=== PATIENT | female | born 1990 | race Caucasian/White ===

== ENCOUNTER 2019-05-26 09:20 | Outpatient (CLI) | payer BC, MEDICAID, SELFPAY ==
[2019-05-26] VITALS (11 sets, daily range): BP systolic 0–122; BP diastolic 0–73; PULSE 84–105; RESP 18; TEMP 36.4–36.7; O2SAT 99–100; BMI 32.3
[2019-05-26] MEDS: terbutaline 1 mg/mL INJ 0.25 MG SUBCUT (10:25)
[2019-05-26 10:51] LABS: Add Urine Microscopic? YES; Bilirubin Urine Neg (NEGATIVE); Blood Urine Neg (Negative); Glucose Urine UA Norm (Normal); Ketones Urine Negative (Negative); Leukocyte Esterase Urine Negative (Negative); Nitrate Urine Negative (Negative); Protein Urine Neg (Negative); Urine Appearance Hazy (CLEAR); Urine Color Yellow (Yellow); Urobilinogen Urine Norm (Negative); pH Urine 9 (5-7)
[2019-05-26 10:56] LABS: Bacteria Urine TRACE; Fine Granular Casts Urine 0-4 /lpf; Squamous Epithelial Cell Urine 25-40 (0-5); Sulfosalicylic Acid Urine Negative; WBC Urine RARE /hpf (0-5)
[2019-05-26 10:57] LABS: Add Urine Culture? No
== END 2019-05-26 11:15 | disposition home or self-care (01) ==
LOC: OPOB 09:26 → OBGYN 11:10 → OPOB 05-28 07:35
PROVIDERS: Family Provider Family Medicine; PCP Family Medicine; Visit Provider Family Medicine
DX: O26.899 Other specified pregnancy related conditions, unspecified trimester (principal); Z3A.00 Weeks of gestation of pregnancy not specified; R10.9 Unspecified abdominal pain
CPT/HCPCS: 59025; 81001; 96372; 99211; A9270; J3105

== ENCOUNTER 2019-06-28 10:20 | Outpatient (CLI) | payer BC, MEDICAID, SELFPAY ==
[2019-06-28 10:50] VITALS: BP 118/87; PULSE 87; TEMP 36.5
[2019-06-28 10:58] VITALS: BMI 33.2
[2019-06-28 11:10] VITALS: BP 0/0
[2019-06-28 11:11] VITALS: BP 122/76; PULSE 75
[2019-06-28 11:31] VITALS: BP 116/81; PULSE 79
[2019-06-28 11:51] VITALS: BP 120/81; PULSE 79
[2019-06-28 11:54] VITALS: BP 117/82; PULSE 79
== END 2019-06-28 12:00 | disposition home or self-care (01) ==
LOC: OPOB 10:28 → OBGYN 11:55 → OPOB 06-29 14:34
PROVIDERS: Family Provider Family Medicine; PCP Family Medicine; Visit Provider Family Medicine
DX: O26.899 Other specified pregnancy related conditions, unspecified trimester (principal); Z3A.00 Weeks of gestation of pregnancy not specified; R10.9 Unspecified abdominal pain
CPT/HCPCS: 59025; 99211

== ENCOUNTER 2019-07-06 22:00 | Outpatient (CLI) | payer BC, MEDICAID, SELFPAY ==
[2019-07-06 22:02] VITALS: BMI 33.4
[2019-07-06 22:18] VITALS: BP 129/83; PULSE 87
[2019-07-06 22:57] VITALS: BP 124/80; PULSE 86; RESP 16; TEMP 36.7
--- NOTE | 2019-07-06 23:24 | PC.NURSE ---
Pain only with contractions
== END 2019-07-06 22:57 | disposition home or self-care (01) ==
LOC: OPOB 22:01 → OBGYN 22:04
PROVIDERS: Family Provider Family Medicine; PCP Family Medicine; Visit Provider Family Medicine
DX: O26.899 Other specified pregnancy related conditions, unspecified trimester (principal); Z3A.00 Weeks of gestation of pregnancy not specified; R10.9 Unspecified abdominal pain
CPT/HCPCS: 99211

== ENCOUNTER 2019-07-08 03:10 | Inpatient (IN) | payer BC, MEDICAID, SELFPAY ==
[2019-07-08] VITALS (55 sets, daily range): BP systolic 0–147; BP diastolic 0–80; PULSE 71–100; RESP 15–18; TEMP 36.5–36.9; O2SAT 86–98; BMI 33.3
[2019-07-08] MEDS: lactated ringers 1,000 ML 999 ML IV (03:35)
--- NOTE | 2019-07-08 03:46 | PM.OBGYHP ---
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 She presents at 40-2/7 weeks gestation with complaint of contractions initially irregular and mild but then becoming more frequent and intense at approximately midnight on 07/08/2019. She states that she has had no leakage of fluid and no bleeding. She was scheduled for induction this morning at 7:30 AM secondary to postdates. Her course has been complicated only by anemia of as well as some heartburn for which she takes iron and famotidine respectively. Present Details : 4 Para: 2 Date of Last Menstrual Period: 09/29/18 Calculated Date of Delivery: 07/06/19 Gestational Age Based on Last Menstrual Period: 40 Dating criteria OB: LMP confirmed by 2nd trimester US care: good care Ultrasounds: normal mid trimester US Obstetrical complications: other (Anemia of ) Medical complications OB: gastrointestinal (Gastroesophageal reflux) Labs Blood type OB HPI: O (+) positive Rubella: Immune RPR: Negative GBS: Negative HBsAG: Negative Other Lab Information: Antibody Screen: Negative HCT/HB.2/42.8 initially, most recent hemoglobin in clinic 12.0 Pap Test: Normal Urine Culture/Screen: Negative HIV Counseling/Testing: Negative Hepatitis C: Negative Chlamydia: Negative GC: Negative Varicella Titer: Immune MSAFP/Multiple Markers: Negative Diabetes Screen: 100 Tdap: Done 04/19/2019 Urine Drug Screen: Negative Review of Systems Const: Denies: fever : Reports: pelvic pain (Intermittent and consistent with contractions); Denies: vaginal bleeding or vaginal discharge Medications/Allergies Home Medications Medication Instructions Recorded Confirmed Last Taken Type ferrous sulfate [Iron (ferrous 325 mg PO DAILY 07/08/19 07/08/19 07/02/19 08:00 History sulfate)] Allergies Allergy/AdvReac Type Severity Reaction Status Date / Time No Known Allergies Allergy Verified 07/08/19 04:52 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: Medical History (Updated 07/08/19 @ 04:13 by Blanche Yusuf MD) Renal calculus Request for sterilization Surgical History No history of previous surgery Family History Father Hypertension Social History (Updated 07/08/19 @ 04:01 by Blanche Yusuf MD) Smoking and tobacco status: never smoked Second hand smoke exposure: Yes Alcohol intake: never Substance/Drug Use: never Adopted: No Caregiver/support person: Yes Lives independently: Yes Household members: significant other and children Marital status: Single Number of children: 2 Number of grandchildren: 0 Highest education level completed: High School Graduate Current occupational status: employed Current occupation: [employer] at [employer] History of recent travel: No Sexually active: Yes Other Female Reproductive History: Hx Age of Menarche: 12 Duration of menses: 3-5 days Cycle Length: irregular Menstrual flow: normal/abnormal: normal Sexual History: Are you sexually active?: Yes How many partners have you had?: 6 What is your sexual preference?: Heterosexual Hx Sexually Transmitted Diseases: Yes Which STD?: Chlamydia (in 2008) Have you ever tested positive for HIV?: No Contraception: control method: Implanted History History History 4 Term 2 Miscarriages/Ectopic 1 0 Living Children 2 Past Pregnancies Del. Date GA/Weeks Outcome Route Wt Inf Gender Labor Lgth Comp. Anesthesia Location 09/18/08 38 live - full term Vaginal 6 lb 15.5 oz Male [facility] 08/07/15 8 spontaneous 08/03/16 39 live - full term Vaginal 6 lb 9.5 oz Female [facility] Delivery Date: 09/18/08 On 07/08/19 @ 04:04 Blanche Yusuf Renal calculus during Delivery Date: 08/07/15 No notes to display Delivery Date: 08/03/16 No notes to display Vitals/I&O/Wt Last Vital Signs Pulse 73 07/08/19 03:08 BP 0/0 07/08/19 03:43 Weight last 48 hrs Weight 176lb 0.217oz Physical Exam Narrative: EXAM NARRATIVE: For complete physical examination please refer to her record. heart tones have a baseline in the 130s to 140 with moderate variability, accelerations and no decelerations. Const: COMMON NORMALS: oriented x3, healthy appearing, alert and well nourished GENERAL APPEARANCE: in distress (Grimacing with contractions) : MANUAL OB EXAM: dilated (4 to 5 cm), effaced (Greater than 75%), station (-3) and other (Vertex, ballotable) AMNIOTIC FLUID: no fluid Psych: COMMON NORMALS: mental status grossly normal, thought process normal, cooperative, affect normal, speech normal and activity/motor behavior normal Data : 07/08/19 03:30 A&P Assessment and plan (1) 40 weeks gestation of : Status: Acute (2) Spontaneous onset of labor: Patient is requesting an epidural and at this moment is being prepared for it with labs and an IV fluid bolus. Patient had requested sterilization and has signed her consent on 04/19/2019 and completed her office consultation with women's health care but knows that elective surgeries are being postponed right now secondary to the Covid-19 pandemic. Status: Acute (3) Anemia affecting : Status: Acute Attestations Medical Necessity Statement*: As patient is actively laboring and has not yet delivered, she will need to remain hospitalized. Time Spent in Patient Care: Greater than 35 minutes Coding Level of Care Code Acute Property Insurance Inspector for Chg Fwd Exam Expanded Problem Focused Diagnoses 40 weeks gestation of Z3A.40 Spontaneous onset of labor Anemia affecting O99.019
[2019-07-08 03:53] LABS: Basophils # 0.1 10^3/uL (0.0-0.1); Basophils % 0.5 %; Eosinophils # 0.3 10^3/uL (0.0-0.8); Eosinophils % 2.2 %; Hemoglobin 13.4 g/dL (11.5-15.3); Lymphocytes # 2.7 10^3/uL (0.8-4.8); Lymphocytes % 17.5 %; Mean Corpuscular HGB Conc 31.2 g/dL (30.0-36.0); Mean Corpuscular Hemoglobin 26.3 pg (28.0-34.0); Mean Corpuscular Volume 84.3 fL (81-99); Mean Platelet Volume 10.4 fL (7.4-10.4); Monocytes # 1.4 10^3/uL (0.2-0.9); Monocytes % 9.3 %; Neutrophils # 10.8 10^3/uL (1.8-7.7); Nucleated Red Blood Cells % 0 %; Platelet Count 307 10^3/cmm (130-400); Red Cell Distribution Width 15.2 % (12.1-15.1); White Blood Count 15.5 10^3/uL (4.0-10.0)
[2019-07-08] MEDS: dextrose 5%-lactated ringers 1,000 ML 125 ML IV (04:36)
--- NOTE | 2019-07-08 05:16 | P.ANESASSM_ITS ---
Pre-Anesthetic Assessment Pre-Anesthetic Assessment: Height/Weight: Height 1.55 m Weight 79.838 kg Temp Pulse Resp BP Pulse Ox 98.4 F 74 18 123/58 97 07/08/19 03:00 07/08/19 05:11 07/08/19 03:00 07/08/19 05:11 07/08/19 05:12 Preop Diagnosis: IUP Proposed Procedure: labor epidural Was Beta Cynthia taken within 24 hours: N/A Meds/Allergies Current Medications: Current Medications Generic Name Dose Route Start Last Admin Trade Name Freq PRN Reason Stop Dose Admin Lactated Ringer's 1,000 mls @ 999 m ls/hr 07/08/19 03:11 07/08/19 04:36 Lactated Ringers IV Infused .Q1H1M PRN Infusion ANESTHESIA Dextrose/Lactated Ringer's 1,000 mls @ 125 m ls/hr 07/08/19 03:15 07/08/19 04:36 Dextrose 5%-Lact ated Ringers IV 125 mls/hr .Q8H MILTON Administration Ropivacaine 200 mg in 100 mls @ 6 mls/hr 07/08/19 03:15 07/08/19 05:08 Naropin Premix EPIDURAL 12 mls/hr .[id number] MILTON Administration PFSH Anesthesia PFSH: Medical History (Updated 07/08/19 @ 04:13 by Blanche Yusuf MD) Renal calculus Request for sterilization Surgical History No history of previous surgery Family History Father Hypertension Social History (Updated 07/08/19 @ 04:01 by Blanche Yusuf MD) Smoking and tobacco status: never smoked Second hand smoke exposure: Yes Alcohol intake: never Substance/Drug Use: never Adopted: No Caregiver/support person: Yes Lives independently: Yes Household members: significant other and children Marital status: Single Number of children: 2 Number of grandchildren: 0 Highest education level completed: High School Graduate Current occupational status: employed 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 [employer] History of recent travel: No Sexually active: Yes Female Reproductive History: Date of last menstrual period: 09/29/18 : 4 Data Anesthesia CBC & Chem 7: 07/08/19 03:30 Other Labs: Laboratory Results - last 48 hr 07/08/19 03:30 WBC 15.5 H RBC 5.10 Hgb 13.4 Hct 43.0 MCV 84.3 MCH 26.3 L MCHC 31.2 RDW 15.2 H Plt Count 307 MPV 10.4 Neut % (Auto) 70.0 Lymph % (Auto) 17.5 [place] % (Auto) 9.3 Eos % (Auto) 2.2 Baso % (Auto) 0.5 Neut # (Auto) 10.8 H Lymph # (Auto) 2.7 [place] # (Auto) 1.4 H Eos # (Auto) 0.3 Baso # (Auto) 0.1 Nucleated RBC % (auto) 0 Nucleated RBCs # 0.0 Cardiac Studies: No Data to Display Anesthesia Procedures Procedure Narrative: no changes to previous pre-op assessment Epidural: Time Out Performed: Yes Consents Signed: Procedure Consent Consent: requested by attending/covering physician, from patient, risks and benefits reviewed and patient agrees to proceed Lumbar Level: L3-L4 Epidural position: sitting Epidural procedure: sterile prep of area, 1% lidocaine to numb the area (3 cc), test dose given, 1.5% xylocaine 1:200k epi, 0.2% Ropivacaine bolus ml (8 cc), placed PCEA, no systemic response, sterile pao ssing applied, L.U.D. no apparent complications and 0.2% Ropiavacaine @ mls/hr (12 ml/hr 5 cc Q 10 min bolus x 3) Additional Comments: BABS @ 6 cm, catheter threaded to 14 cm at skin. no parasthesia VSS see OBYX . Patient states legs are heavy bilaterally, pain with contractions 0/10 @ this time.
--- NOTE | 2019-07-08 06:04 | P.PN_ITS ---
CRYPTOGRAPHIC CLERK Subjective Subjective: Interval history: Patient received her epidural and is comfortable. Labor: Pain Control: epidural Dilation (cm): 8 Effacement (%): 90 Station: -2 Amniotic Membrane Status: Ruptured Monitor Mode: External Contraction Pattern: Regular Status: Category ll Vitals/I&O/Wt Last Vital Signs Temp 98.0 F 07/08/19 05:32 Pulse 75 07/08/19 05:48 Resp 18 07/08/19 05:32 BP 114/61 07/08/19 05:48 Pulse Ox 97 07/08/19 05:12 07/07/19 07/07/19 07/08/19 14:59 22:59 06:59 Intake Total 1000 / 1000 Balance 1000 / 1000 Weight last 48 hrs Weight 176 lb 0.217 oz Physical Exam Narrative: EXAM NARRATIVE: FHTs with baseline 130-140, moderate variability, accelerations, also early decelerations with each contraction since amniotomy : MANUAL OB EXAM: dilated 8 cm, effaced (90), station -2 and other (vertex, not ballottable, bulging bag of water) AMNIOTIC FLUID: clear (post amniotomy, moderate amount) Urinary Catheter Management^: Irwin: Cath Placed During This Visit: yes Urinary Catheter Date of Insertion: 07/08/19 Urinary Catheter Time of Insertion: : Data : 07/08/19 03:30 A&P Assessment and plan (1) 40 weeks gestation of : Status: Acute (2) Spontaneous onset of labor: Patient is comfortable with her epidural in place. Status: Acute (3) Rupture of membranes with clear amniotic fluid: Amniotomy was performed at 0555 and was productive of a moderate amount of clear fluid. Status: Acute Attestations Medical Necessity Statement*: As patient has not yet delivered, she will co ntinue to require hospitalization. Coding Level of Care Code Acute Weatherization Crew Leader for Chg Fwd Diagnoses 40 weeks gestation of Z3A.40 Spontaneous onset of labor Rupture of membranes with clear amniotic fluid
--- NOTE | 2019-07-08 07:31 | P.PCNOB_ITS ---
Delivery Note: Date of delivery: July 08, 2019 Pre-Delivery Course: Patient arrived earlier this morning with contractions increasing in frequency and intensity since midnight. Upon arrival she was 4 to 5 cm dilated, 80% effaced and -3 station and gene every 4 to 5 minutes. She opted for an epidural, received it and became comfortable. She was then found to be 7 cm dilated. Amniotomy was performed at 5:55 AM and was productive of a moderate amount of clear fluid, and, at that time, she was 8 cm dilated, 90% effaced and -2 station. She began having early decelerations with nearly each contraction and was found to be completely dilated at 6:57 AM. At that time she was 0 station. Delivery: We began the active portion of the second stage of her labor at 7:07 AM, and in 3 minutes she delivered a viable female infant at 7:10 AM. Head was straight OA. Bulb suctioning was done upon delivery of the head. There was a nuchal cord x1 which was reduced easily manually on the perineum. Bulb suction ing was then done upon delivery of the baby's body. Baby was placed on maternal abdomen while cord was clamped by myself approximately 50 seconds after delivery. Cord was cut by the father the baby, and cord blood was obtained. Gentle traction was placed on the cord, and intravenous Pitocin was begun in routine dosages. The placenta delivered intact at 7:14 AM and appeared normal. Fundal massage revealed a firm uterus. Perineum and cervix were inspected, and there were bilateral periurethral abrasions as well as a first-degree midline perineal laceration which was repaired with 2-0 chromic in standard fashion with her epidural as anesthesia. Post-Delivery Status: Estimated blood loss was approximately 150 mL's. Mother and baby are stable. Baby had Apgars of 9 at 1 minute and 9 at 5 minutes and weighed 7 pounds 13 ounces. A&P Assessment and plan (1) 40 weeks gestation of : Status: Resolved (2) Spontaneous onset of labor: Status: Resolved (3) Anemia affecting : Status: Resolved (4) Rupture of membranes with clear amniotic fluid: Status: Resolved (5) (normal spontaneous vaginal delivery): Routine orders Status: Acute (6) Periurethral abrasion, delivered, current hospitalization: Status: Acute (7) Perineal laceration with delivery, first degree, delivered: Status post repair Status: Acute (8) Nuchal cord, delivered, current hospitalization: Status: Resolved Coding Level of Care Code Acute Human Resources Specialist for Chg Fwd Diagnoses 40 weeks gestation of Z3A.40 Spontaneous onset of labor Anemia affecting O99.019 Rupture of membranes with clear amniotic fluid (normal spontaneous vaginal delivery) O80 Periurethral abrasion, delivered, current hospitalization O71.82 Perineal laceration with delivery, first degree, delivered O70.0 Nuchal cord, delivered, current hospitalization O69.81X0
[2019-07-08] MEDS: oxytocin 30 UNIT/500 ML BAG 600 UNIT IV (08:23)
[2019-07-08] MEDS: prenatal vitamin Capsule 1 CAP PO (09:12)
[2019-07-08] MEDS: docusate sodium 100 mg Capsule PO ×2 (09:12→18:29)
[2019-07-08 19:59] LABS: Hematocrit 36.4 % (37.0-47.0); Hemoglobin 11.8 g/dL (11.5-15.3); Mean Corpuscular HGB Conc 32.4 g/dL (30.0-36.0); Mean Corpuscular Hemoglobin 26.9 pg (28.0-34.0); Mean Corpuscular Volume 82.9 fL (81-99); Mean Platelet Volume 9.9 fL (7.4-10.4); Platelet Count 324 10^3/cmm (130-400); Red Blood Count 4.39 10^6/uL (4.1-5.3); Red Cell Distribution Width 15.2 % (12.1-15.1); White Blood Count 18.7 10^3/uL (4.0-10.0)
[2019-07-09 01:45] VITALS: BP 127/77; PULSE 79; RESP 17; TEMP 36.8; O2SAT 95
[2019-07-09 04:40] VITALS: BP 127/86; PULSE 78; RESP 15; TEMP 36.6; O2SAT 97
--- NOTE | 2019-07-09 07:40 | PM.OBGYDC ---
Discharge Providers NURSE CARE MANAGER Date of Admission: 07/08/19 03:10 Date of Discharge: 07/09/19 Attending Provider at Admission: Blanche Yusuf MD Attending Provider at Discharge: Blanche Yusuf MD Primary Care Provider: Blanche Yusuf MD Diagnoses at Discharge Discharge Diagnosis (1) 40 weeks gestation of : Status: Resolved (2) Spontaneous onset of labor: Status: Resolved (3) Rupture of membranes with clear amniotic fluid: Status: Resolved (4) Anemia affecting : Status: Resolved (5) (normal spontaneous vaginal delivery): Status: Acute (6) Periurethral abrasion, delivered, current hospitalization: Status: Acute (7) Perineal laceration with delivery, first degree, delivered: Status: Acute (8) Nuchal cord, delivered, current hospitalization: Status: Resolved Reason for Visit Reason for Visit: Reason For Visit: poss labor Hospital Course Hospital Course: Patient arrived in the early hours of the morning on 07/08/2019 gene every 4 to 5 minutes. The contractions had begun at midnight and had increased in frequency and intensity. Upon arrival to the labor room she was 4 to 5 cm dilated, 80% effaced and -3 station. She opted for an epidural, received it and became comfortable. At that time she was 7 cm dilated. Amniotomy was performed when she was 8 cm dilated and 90% effaced and -2 station. Within the hour she was completely dilated and in less than 10 minutes delivered a viable female infant weighing 7 pounds 13 ounces with Apgars of 9 at 1 minute and 9 at 5 minutes. day 1 she has only cramping with breast-feeding and has had minimal bleeding. Discharge Summary: Patient states that she has vitamins at home to continue as long as she is breast-feeding but does need some ibuprofen sent to her pharmacy. She realizes that her sterilization procedure will be delayed and plans to resume a progesterone only pill at her 6-week visit. She has no concerns with baby now that she has voided. She is ready for discharge. Information Peripartum Data: Infant Delivery Method: Vaginal Physical Exam Const: COMMON NORMALS: no apparent distress, oriented x3, no limitations, healthy appearing, alert and well nourished Resp: COMMON NORMALS: normal respiratory effort and clear to auscultation bilaterally AUSCULTATION: clear to auscultation bilaterally Cardio: COMMON NORMALS: regular rate, regular rhythm, S1 normal heart sound, S2 normal heart sound, no murmurs and peripheral pulses 2+ throughout RATE: regular rate RHYTHM: regular rhythm HEART SOUNDS: S1 normal and S2 normal PERIPHERAL PULSES: pulses 2+ throughout : UTERUS PALPATION: Yes other OB (Fundus is firm, nontender and 2 to 3 fingerbreadths below the umbilicus) Extremity: COMMON NORMALS: no pedal edema Neuro: COMMON NORMALS: oriented x3 SENSORIUM/ORIENTATION: Yes alert Psych: COMMON NORMALS: mental status grossly normal, thought process normal, cooperative, affect normal, speech normal and activity/motor behavior normal SPEECH: Yes normal speech THOUGHT PROCESS: normal thought process Urinary Catheter Management^: Irwin: Cath Placed During This Visit: yes, but has since been removed by the nurse Reason for Continuing Indwelling Catheter: Decision to DC Catheter Urinary Catheter Date of Insertion: 07/08/19 Urinary Catheter Time of Insertion: 05:20 Date Urinary Catheter Removed: 07/08/19 Time Urinary Catheter Discontinued: 07:02 Discharge Data Data Completed and Pending: Labs from last 24 hours 07/08/19 19:43 WBC 18.7 H RBC 4.39 Hgb 11.8 Hct 36.4 L MCV 82.9 MCH 26.9 L MCHC 32.4 RDW 15.2 H Plt Count 324 MPV 9.9 Vitals: Last Vital Signs Temp 97.8 F 07/09/19 04:40 Pulse 78 07/09/19 04:40 Resp 15 07/09/19 04:40 BP 127/86 07/09/19 04:40 Pulse Ox 97 07/09/19 04:40 Discharge Plan Discharge Patient Disposition: Home, Self-Care Condition: Stable Prescriptions: New ibuprofen 800 mg Tablet 800 mg PO TID Qty: 30 RF: 0 Continued 28-800 mg-mcg Tablet 1 tab PO DAILY RF: 0 Discontinued famotidine 20 mg tablet 20 mg PO DAILY RF: 0 ferrous sulfate [Iron (ferrous sulfate)] 325 mg (65 mg iron) Tablet 325 mg PO DAILY RF: 0 Discharge Orders: Discharge Order (Routine); Ordered 07/09/19 Ordered By: Blanche Yusuf Referrals: Blanche Yusuf MD [Primary Care Provider] - 6 Weeks Discharge Diet: Usual diet Discharge Activity: Limit activity as instructed Patient Instructions: Vitamins (By mouth), Vaginal Delivery (DC), OB Discharge Report, OB Food/Drug Interaction Guide, OB Care at Home, OB Home Care, OB Proud Parent Packet, OB Vaginal Deliveries Discharge Attestations NURSE CARE MANAGER Time Spent in Discharge Care*: less than 30 min Specific Discharge Activities: Specific discharge activities: educating patient, documenting/other paperwork and evaluating patient/reviewing data Status at Discharge: Cognitive status at discharge: cognitively intact, Behavioral status at discharge: cooperative, Functional status at discharge: independent ambulation Overall status at discharge: patient is progressing back to baseline Coding Level of Care Code Acute Guardian Family Member for Chg Fwd Diagnoses 40 weeks gestation of Z3A.40 Spontaneous onset of labor Rupture of membranes with clear amniotic fluid Anemia affecting O99.019 (normal spontaneous vaginal delivery) O80 Periurethral abrasion, delivered, current hospitalization O71.82 Perineal laceration with delivery, first degree, delivered O70.0 Nuchal cord, delivered, current hospitalization O69.81X0
[2019-07-09] MEDS: prenatal vitamin Capsule 1 CAP PO (10:04)
[2019-07-09] MEDS: docusate sodium 100 mg Capsule PO (10:04)
[2019-07-09 10:30] VITALS: BP 116/75; PULSE 104; RESP 15; TEMP 36.7; O2SAT 96
[2019-07-09 10:45] VITALS: BP 116/75; PULSE 104; RESP 15; TEMP 36.7; O2SAT 96
== END 2019-07-09 10:45 | disposition home or self-care (01) | DRG 807 ==
LOC: OBGYN 03:42 → OPOB 03:42 → OBGYN 03:42 → OPOB 03:42
PROVIDERS: Admitting Provider Family Medicine; Family Provider Family Medicine; PCP Family Medicine; Visit Provider Family Medicine
DX: O99.02 Anemia complicating childbirth (principal); Z37.0 Single live birth; Z3A.40 40 weeks gestation of pregnancy; D64.9 Anemia, unspecified; O69.81X0 Labor and delivery complicated by cord around neck, without compression, not applicable or unspecified; O70.0 First degree perineal laceration during delivery; O71.82 Other specified trauma to perineum and vulva
CPT/HCPCS: 12345; 36415; 51702; 59409; 85025; 85027; 99211; J2795; J3010

== ENCOUNTER 2019-09-22 10:30 | Day surgery (SDC) | payer BC, MEDICAID, SELFPAY ==
[2019-09-20 10:51] VITALS: BMI 29.8
[2019-09-20 11:12] LABS: Add Urine Microscopic? NO
[2019-09-20 11:23] LABS: Urine Appearance Clear (CLEAR); Urine Color Yellow (Yellow)
[2019-09-20 11:24] LABS: Bilirubin Urine Neg (NEGATIVE); Blood Urine Neg (Negative); Glucose Urine UA Norm (Normal); Ketones Urine Negative (Negative); Leukocyte Esterase Urine Negative (Negative); Nitrate Urine Negative (Negative); Protein Urine Neg (Negative); Urobilinogen Urine 1 mg/dL (Negative); pH Urine 7 (5-7)
--- NOTE | 2019-09-20 11:31 | P.ANESASSM_ITS ---
Pre-Anesthetic Assessment Pre-Anesthetic Assessment: Height/Weight: Height 1.55 m Weight 71.668 kg Preop Diagnosis: Desire permanent sterilization Proposed Procedure: Operation Date: 09/22/19 11:35 Proposed Procedures p Geovanni Kowalski,Removal of Tubes Sterilization 08695 Z30.2(Bilateral) - Ankur Keith MD Social: Social History: No alcohol and No tobacco Exam: Pre-Anes Outpt Exam: alert, oriented x 3, clear to auscultation bilaterally and regular rate & rhythm Airway: Submandibular: WNL Cervical ROM: WNL MP: 2 Dentition: Other (poor dentation) History/ROS: No significant history except as noted Pulmonary: Pulmonary: None reported CV/HEM: CV/HEM: None reported : : None reported Hepatic: Hepatic: None reported GI: GI: None reported Metabolic: Metabolic: None reported Musc/skel: Musc/skel: None reported Neuropsych: Neuropsych: None reported Anesthetic Plan: ASA status: 1 Anesthesia: Anesthesia Evaluation and General Risk of > 500 ml blood loss (7ml/kg in children): No PFSH Anesthesia PFSH: Medical History Renal calculus Request for sterilization Surgical History No history of previous surgery Family History Father Hypertension Social History Smoking and tobacco status: never smoked Second hand smoke exposure: Yes Alcohol intake: never Substance/Drug Use: never Adopted: No Caregiver/support person: Yes Lives independently: Yes Household members: significant other and children Marital status: Single Number of children: 3 Number of grandchildren: 0 Highest education level completed: High School Graduate Current occupational status: employed 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
[2019-09-20 11:34] LABS: Basophils # 0.1 10^3/uL (0.0-0.1); Basophils % 0.6 %; Eosinophils # 0.5 10^3/uL (0.0-0.8); Eosinophils % 4.9 %; Hematocrit 42.4 % (37.0-47.0); Hemoglobin 13.4 g/dL (11.5-15.3); Lymphocytes # 2.2 10^3/uL (0.8-4.8); Lymphocytes % 20.3 %; Mean Corpuscular HGB Conc 31.6 g/dL (30.0-36.0); Mean Corpuscular Hemoglobin 27.8 pg (28.0-34.0); Mean Platelet Volume 9.4 fL (7.4-10.4); Monocytes # 0.8 10^3/uL (0.2-0.9); Monocytes % 7.4 %; Neutrophils # 7.2 10^3/uL (1.8-7.7); Neutrophils % 66.3 %; Nucleated Red Blood Cells % 0 %; Platelet Count 365 10^3/cmm (130-400); Red Blood Count 4.82 10^6/uL (4.1-5.3); Red Cell Distribution Width 14.9 % (12.1-15.1); White Blood Count 10.9 10^3/uL (4.0-10.0)
[2019-09-20 12:00] LABS: Anion Gap 13.9 (5-19); Blood Urea Nitrogen 13 mg/dL (6-20); Calcium 9.4 mg/dL (8.5-10.5); Carbon Dioxide 27 mmol/L (22-29); Chloride 103 mmol/L (98-107); Glomerular Filtration Rate 98.9 mL/min (90-130); Glucose 97 mg/dL (65-115); Osmolality Calculated 286 mOsm/kg (285-295); Potassium 3.9 mmol/L (3.5-5.1); Sodium 140 mmol/L (136-145)
[2019-09-21 07:46] LABS: OR HCG Qualitative Urine Negative (Negative)
[2019-09-22] VITALS (7 sets, daily range): BP systolic 115–146; BP diastolic 74–92; PULSE 55–90; RESP 14–18; TEMP 36.2–36.3; O2SAT 95–99
[2019-09-22] MEDS: sodium chloride 0.9% 1,000 ML 30 ML IV (11:00)
[2019-09-22] MEDS: scopolamine 1.5 Patch 1 PATCH TRANSDERMA (11:05)
--- NOTE | 2019-09-22 11:39 | W.PM.OPSUD ---
Surgery/Procedure H&P Update DATE OF PROCEDURE: September 22, 2019 DATE H&P PERFORMED: 09/20/19 H&P UPDATE INFORMATION: I have reviewed H&P completed within last 30 days, I have examined patient prior to procedure and No changes to prior documentation PREOP DIAGNOSIS: Desire permanent sterilization PLANNED PROCEDURE: Operation Date: 09/22/19 10:40 Proposed Procedures p Lap Fulg,Removal of Tubes Sterilization 74764 Z30.2(Bilateral) - Ankur Keith MD
--- NOTE | 2019-09-22 12:50 | PM.OP ---
Operative Report Date of procedure: September 22, 2019 Pre-op Diagnosis: Desire permanent sterilization Post-op diagnosis: same Post-op Findings: Enlarged uterus Specimens removed/disposition: left and right fallopian tubes Pathology: L&R fallopian tubes Surgeon: Ankru Keith Anesthesia: General Estimated blood loss (mL): 5 IV fluids (mL): 900 Urine output (mL): 500 Condition: stable Disposition: PACU Procedure: After informed consent, the patient was taken to the operating room where general anesthesia was administered. She was placed in the dorsal lithotomy position and prepped and draped in sterile fashion. Pre-Procedure Time-Out verifying the correct patient identity, correct procedure verified with consent, correct site and side, correct patient position, availability of correct implants and any special equipment or requirements was performed and acknowledge by the OR team. The patient was examined under anesthesia and found to have a normal uterus with normal adnexa. A weighted speculum was placed in the vagina, and the anterior lip of cervix was grasped with the single toothed tenaculum. A uterine manipulator was advanced into the endocervical canal and uterus. The tenaculum was removed after uterine manipulator was secured. The speculum was removed from the vagina. An intraumbilical incision was made with a scalpel. While tenting up on the abdomen, a Verres needle was admitted into the intra-abdominal cavity. A saline drop test was performed and noted to be within normal limits. Pneumoperitoneum was attained with 4 liters of carbon dioxide. The Verres needle was removed. A 5 mm Opitc view trocar and sleeve were admitted into the abdomen and laparoscopic confirmation of location was achieved. A second incision was made 3 cm above the symphysis pubis, and a 5 mm trocar sleeves were admitted into the abdomen under direct laparoscopic visualization without complication. A survey revealed normal abdominal anatomy with the exception of string adhesion to the right lower anterior abdominal wall. A 5 mm blunt probe was advanced through the second trocar sleeve, and light manipulation of ovaries and uterus to assess the posterior aspects was performed. The pelvic survey shows normal uterus, left and right adnexa. The left ovary was noted with a follicular cyst. The string adhesion was fulgurated and transected with good hemostasis with the Voyant. The patient was placed into Trendelenburg position. The fallopian tubes were inspected bilaterally and the fimbriated ends of the fallopian tubes were visualized bilaterally. Attention was then directed to the right side. The fallopian tube and mesosalpinx were grasped and the underlying mesosalpinx was cauterized and cut using the Voyant device. Serial cauterization and cutting was used to separate the fallopian tube from the underlying mesosalpinx until it could be amputated cutting it approximated 2 cm from the cornua. Attention was then turned to the contralateral fallopian tube, which was removed in similar fashion. Both specimens were removed through the trocar and sent to pathology. The instruments were removed. The suprapubic trocar port was removed under direct visualization insuring good hemostasis. The carbon dioxide was allowed to escape from the abdomen. The intraumbilical trocar sleeve was withdrawn under visualization with laparoscope in the sleeve to insure hemostasis. The skin incisions were closed with 3-O Monocryl subcuticular stich and Exofin bioadhisive. The instruments were removed from the vagina, and excellent hemostasis was noted. The patient tolerated the procedure well, and sponge, lap and needle count were correct times two. The patient was taken to the recovery room in good condition.
--- NOTE | 2019-09-22 13:22 | SUR.PHASEI ---
1320 PT C/O R. ARM/SHOULDER PAIN, UNKNOWN CAUSE
[2019-09-22] MEDS: HYDROcodone-acetaminophen 5-325 mg Tablet 1 TAB PO (13:45)
== END 2019-09-22 14:00 | disposition home or self-care (01) ==
PROVIDERS: PCP Family Medicine; Visit Provider Obstetrics & Gynecology
PROC: (CPT 58661; principal; 2019-09-22 10:40)
DX: Z30.2 Encounter for sterilization (principal)
CPT/HCPCS: 58661; 12345; 36415; 80048; 81003; 81025; 84703; 85025; 86850; 86900; 88302; J0690; J1100; J2405; J2704; J2710; J3010; J3490; J7030

== ENCOUNTER 2019-11-29 10:06 | Emergency (ER) | payer BC, MEDICAID, SELFPAY ==
[2019-11-29 10:19] VITALS: BP 118/63; PULSE 89; RESP 18; TEMP 36.8; O2SAT 94; BMI 28.1
[2019-11-29 10:29] VITALS: BP 118/63; PULSE 105; RESP 16; O2SAT 96
--- NOTE | 2019-11-29 10:34 | ED_ITS ---
HPI - URI/Sore Throat General: Chief Complaint: Upper Respiratory Infection Stated Complaint: CONGESTION Time Seen by Provider: 11/29/19 10:20 Source: patient Mode of arrival: ambulatory Limitations: no limitations History of Present Illness: HPI Narrative: Patient is a 29-year-old female who presents to ED today for complaints of nasal congestion and a cough that started today. She has been seen along with her 4-month-old who has similar symptoms. They have not been running fevers. No sick contacts. She denies shortness of breath, difficulty breathing. Patient states nasal secretions are clear. Denies history of allergic rhinitis. She denies sinus pain/pressure, earache, sore throat. MD elicited complaint: cough and nasal congestion Severity: mild Description of mucous: clear Able to tolerate fluids by mouth: Yes Exacerbating factors: nothing Relieving factors: nothing Context: sick contacts (4 mo old with similar symptoms ) Associated symptoms: Reports nasal congestion; Deny chills, chest pain, epistaxis, ear or mastoid pain, fever(s), headache(s), nausea or sinus pain Treatments prior to arrival: none Review of Systems Const: Denies: fever(s), chills, body aches or fatigue Eyes: Denies: change in vision, blurry vision, photophobia, eye discomfort or eye discharge ENMT: Reports: nasal discharge and nasal congestion; Denies: throat pain, enlarged tonsils, odynophagia, swelling of lips/tongue, oral sores, ear or mastoid pain, ear discharge, change in hearing, tinnitus, disequilibrium, epistaxis, post nasal drip or sinus pain Card: Denies: chest pain Resp: Reports: non-productive cough; Denies: dyspnea, productive cough, pain on inspiration, change in phlegm color, hemoptysis or chest congestion GI: Denies: nausea Skin/Breast: Denies: rash Neuro: Denies: headache(s) All/Imm: Denies: facial swelling or seasonal rhinorrhea PFS ED PFSH: Surgical History (Updated 11/02/19 @ 11:43 by Floresita Hines APN, VINCE) S/P tubal ligation (09/22/19) laparoscopic bilateral tubal fulguration with salpingectomy performed by Dr. Keith at [facility] Family History Father Hypertension Denies family history of Colon cancer Ovarian cancer Diabetes Heart disease Hyperlipidemia Breast cancer Family history of thyroid problem Uterine cancer Stroke Social History Smoking and tobacco status: never smoked Alcohol intake: never Female Reproductive History: Date of last menstrual period: 09/29/18 Physical Exam Const: COMMON NORMALS: no acute distress, average body habitus, patient oriented x3, no limitations, healthy appearing, alert and well nourished HENMT: COMMON NORMALS: normocephalic, atraumatic, hearing grossly normal bilaterally, external ears normal, EAC's normal, TM's normal bilaterally, Normal external nose present, Normal nasal mucous membranes and turbinates present, moist oral mucous membranes, oropharynx normal and gingiva normal HEAD & SCALP: normal to inspection, normocephalic and atraumatic FACE & SINUS: normal facial exam and sinuses nontender NOSE: Normal external nose present and Normal nasal mucous membranes and turbinates present EXTERNAL EAR: Yes external ears normal EXTERNAL AUDITORY CANAL: EAC's normal TYMPANIC MEMBRANE: TM's normal bilaterally MOUTH: Normal oral and palatal mucosa present, lip normal and tongue normal THROAT: posterior oropharynx normal, tonsils normal and uvula midline Eye: COMMON NORMALS: Equal, round and reactive pupils present, EOMs intact bilaterally, conjunctivae normal and no scleral icterus GENERAL EYE: appearance normal, both eyes and all related structures CONJUNCTIVA: Yes conjunctivae normal PUPIL: Yes Equal, round and reactive pupils present Neck/C-Spine: COMMON NORMALS: no lymphadenopathy Resp: COMMON NORMALS: normal respiratory effort and clear to auscultation bilaterally AUSCULTATION: clear to auscultation bilaterally Cardio: COMMON NORMALS: regular rate and regular rhythm RATE: regular rate RHYTHM: regular rhythm Neuro: COMMON NORMALS: patient oriented x3 SENSORIUM/ORIENTATION: Yes alert Skin: COMMON NORMALS: no rashes or lesions noted GENERAL SKIN EXAM: no rashes or lesions noted Course Vital Signs: Vital signs: Vital Signs Temperature 98.2 F 11/29/19 10:19 Pulse Rate 105 H 11/29/19 10:29 Respiratory Rate 16 11/29/19 10:29 Blood Pressure 118/63 11/29/19 10:29 Pulse Oximetry 96 11/29/19 10:29 Discharge Plan Discharge Patient Disposition: Home Clinical Impression: Upper respiratory infection Qualifiers: URI type: unspecified viral URI Qualified Code(s): J06.9 - Acute upper respiratory infection, unspecified Condition: Stable Prescriptions: No Action 28-800 mg-mcg Tablet 1 tab PO DAILY RF: 0 Discharge Orders: Discharge Order (Routine); Ordered 11/29/19 Ordered By: Rose Mary Johnson Referrals: Blanche Yusuf MD [Primary Care Provider] - Patient Instructions: Upper Respiratory Infection - Adult 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
== END 2019-11-29 10:51 | disposition home or self-care (01) ==
LOC: ER 10:50
PROVIDERS: Emergency Provider Physician Assistant; PCP Family Medicine
DX: J06.9 Acute upper respiratory infection, unspecified (principal)
CPT/HCPCS: 12345; 99282

== ENCOUNTER → 2020-02-14 13:39 | Outpatient (BNVA) | payer BC, MEDICAID, SELFPAY | PROVIDERS: PCP Family Medicine; Visit Provider Obstetrics & Gynecology | DX: Z12.4 Encounter for screening for malignant neoplasm of cervix (principal) | CPT/HCPCS: 88175 ==

== ENCOUNTER 2021-04-23 20:59 | Emergency (ER) | payer BC, MEDICAID, SELFPAY ==
[2021-04-23 21:11] VITALS: BP 132/68; PULSE 84; RESP 14; TEMP 36.6; O2SAT 99; BMI 31.1
--- NOTE | 2021-04-23 21:23 | ED_ITS ---
HPI - COVID General: Chief Complaint: COVID symptoms Stated Complaint: Cough\Muscle Aches\N\V\Head Ache Time Seen by Provider: 04/23/21 21:18 Triage information: Has fever, cough or shortness of breath . No known COVID + exposure last 14 days History of Present Illness: HPI Narrative: 30-year-old female comes in today with complaints of malaise, cough and congestion, sore throat for 1 week. Patient also reports that she started feeling ill about 5 days ago and has given it to her whole family. Her son is with her today. Patient appears mildly unwell but not toxic. Patient denies any chronic medical problems. COVID 19 common symptoms: positive non-productive cough and throat pain COVID Results: No Data to Display Review of Systems Const: Reports: malaise ENMT: Reports: throat pain Resp: Reports: non-productive cough PFSH ED PFSH: Medical History (Updated 04/23/21 @ 21:35 by PHILIP Rodriguez) Well woman exam with routine gynecological exam Surgical History S/P tubal ligation (09/22/19) laparoscopic bilateral tubal fulguration with salpingectomy performed by Dr. Keith at [facility] Family History Father Hypertension Denies family history of Colon cancer Ovarian cancer Diabetes Clotting disorder Heart disease Hyperlipidemia Breast cancer Anesthesia complication Family history of thyroid problem Bleeding disorder Uterine cancer Stroke Social History (Updated 02/16/21 @ 15:29 by Mahi Eaton RN) Smoking and tobacco status: never smoked Alcohol intake: never Female Reproductive History: Date of last menstrual period: 04/23/21 Physical Exam Const: COMMON NORMALS: patient oriented x3, healthy appearing and alert HENMT: COMMON NORMALS: TM's normal bilaterally HEAD & SCALP: normal to inspection TYMPANIC MEMBRANE: TM's normal bilaterally THROAT: posterior oropharynx normal Neck/C-Spine: COMMON NORMALS: full ROM and no lymphadenopathy Resp: COMMON NORMALS: normal respiratory effort and clear to auscultation bilaterally AUSCULTATION: clear to auscultation bilaterally Cardio: COMMON NORMALS: regular rate and regular rhythm RATE: regular rate RHYTHM: regular rhythm GI: COMMON NORMALS: Soft to palpation PALPATION: Yes Soft to palpation and No Tenderness to palpation present (GI) Extremity: COMMON NORMALS: normal to inspection Neuro: COMMON NORMALS: patient oriented x3 SENSORIUM/ORIENTATION: Yes alert Psych: COMMON NORMALS: cooperative Skin: COMMON NORMALS: no rashes or lesions noted GENERAL SKIN EXAM: no rashes or lesions noted Course Vital Signs: Vital signs: Vital Signs Temperature 97.9 F 04/23/21 21:11 Pulse Rate 84 04/23/21 21:11 Respiratory Rate 14 04/23/21 21:11 Blood Pressure 132/68 04/23/21 21:11 Pulse Oximetry 99 04/23/21 21:11 MDM - COVID MDM Narrative: Medical decision making narrative: 30-year-old female comes in today for complaints of illness for 5 days. On exam patient appears mildly unwell. Posterior pharynx is pink and moist, bilateral TMs are normal, lungs are clear to auscultation, abdomen soft nontender, no edema is noted. Differential diagnosis includes upper respiratory infection, COVID-19, other viral illness. Patient appears to have a resolving viral illness. COVID-19 testing for PCR was sent to [facility]. Reviewed exam with patient with recommendations for treatment and follow-up. Patient reported understanding and agreed to plan. COVID Results: No Data to Display Discharge Plan Discharge Patient Disposition: Home Clinical Impression: Viral infection Condition: Stable Prescriptions: No Action Benadryl Allergy 25 mg Tablet See Rx Instructions .ROUTE .COMPLEX RF: 0 ibuprofen 200 mg Tablet 800 mg PO PRN RF: 0 Discharge Orders: Discharge ED (Routine); Ordered 04/23/21 Ordered By: Fer Schwartz Referrals: Blanche Yusuf MD [Primary Care Provider] - Discharge Diet: Usual diet Discharge Activity: Increase activity as tolerated Patient Instructions: Viral Syndrome (ED) Activity Restrictions/Additional Instructions: Home and rest. Drink plenty of fluids. Follow-up with primary care for further instruction. COVID test will come back within 24 to 48 hours. 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
[2021-04-23 21:47] VITALS: RESP 16
[2021-04-25 22:52] LABS: Quest SARS-CoV-2 RNA DETECTED (NOT DETECTED)
== END 2021-04-23 21:48 | disposition home or self-care (01) ==
PROVIDERS: Emergency Provider Nurse Practitioner Family; PCP Family Medicine
DX: U07.1 COVID-19 (principal)
CPT/HCPCS: 87635; 99282

== ENCOUNTER 2022-05-04 14:23 | Emergency (ER) | payer OTHER, BC, MEDICAID, SELFPAY ==
[2022-05-04 14:49] VITALS: BP 130/77; PULSE 84; RESP 16; TEMP 36.7; O2SAT 98
--- NOTE | 2022-05-04 17:07 | W.ED.BACK ---
HPI - Back Pain/Injury General: Chief Complaint: Back Pain/Injury Stated Complaint: pulled back muscle Time Seen by Provider: 05/04/22 17:06 History of Present Illness: 31-year-old female comes in today with complaints of left side neck pain and upper back pain. Patient reports she had her daughter sleeping with her on Friday night and when she awakened the next day she had pain and discomfort in the neck and upper back. Patient reports increased difficulty of moving her neck over the past 2 to 3 days. Patient does have guarding of movement of the neck. Patient appears nontoxic. Patient appears in mild to moderate pain. Review of Systems Musc: Reports: neck pain and back pain PFS ED PFSH: Medical History (Updated 05/04/22 @ 17:20 by PHILIP Rodriguez) Well woman exam with routine gynecological exam Surgical History S/P tubal ligation (09/22/19) laparoscopic bilateral tubal fulguration with salpingectomy performed by Dr. Keith at [facility] Family History Father Hypertension Denies family history of Colon cancer Ovarian cancer Diabetes Clotting disorder Heart disease Hyperlipidemia Breast cancer Anesthesia complication Family history of thyroid problem Bleeding disorder Uterine cancer Stroke Social History (Updated 02/16/21 @ 15:29 by Mahi Eaton RN) Smoking and tobacco status: never smoked Alcohol intake: never Female Reproductive History: Date of last menstrual period: 04/23/21 Physical Exam Const: COMMON NORMALS: alert HENMT: COMMON NORMALS: normocephalic HEAD & SCALP: normocephalic Neck/C-Spine: CERVICAL SPINE: No Cervical spine tenderness and Yes Paracervical muscle tenderness Resp: COMMON NORMALS: normal respiratory effort Cardio: COMMON NORMALS: regular rate RATE: regular rate Back/Pelvis: THORACIC SPINE/UPPER BACK: Yes paraspinal muscle tenderness (Upper left) Extremity: COMMON NORMALS: normal to inspection Neuro: SENSORIUM/ORIENTATION: Yes alert Skin: COMMON NORMALS: turgor normal GENERAL SKIN EXAM: turgor normal Course Vital Signs: Vital signs: Vital Signs Temperature 98.0 F 05/04/22 14:49 Pulse Rate 84 05/04/22 14:49 Respiratory Rate 16 05/04/22 14:49 Blood Pressure 130/77 05/04/22 14:49 Pulse Oximetry 98 05/04/22 14:49 Oxygen Delivery Me thod 05/04/22 14:49 MDM - Back Pain/Injury Medical Decision Making 31-year-old female comes in today for complaints of neck and upper back pain. On exam we note muscle tenderness in the left upper neck and back. No cervical spine tenderness is noted on palpation. Patient does have some reduced range of motion due to discomfort. Differential diagnosis includes intervertebral disc disease, facet arthropathy, muscle strain. Believe the patient probably slept wrong causing her to have a muscle strain. Patient was given 10 mg of dexamethasone and 30 mg ketorolac in the ER. Patient was written a prescription for diclofenac 75 mg 1 tablet twice a day for the next 10 days, and 5 mg of cyclobenzaprine at bedtime for rest. Encourage plenty of fluids follow-up with primary care for further instruction. Return to ED for worsening symptoms such as increasing pain and fever. Patient reported understanding and agreed to plan. Discharge Plan Discharge Patient Disposition: Home Clinical Impression: Acute cervical myofascial strain Qualifiers: Encounter type: initial encounter Qualified Code(s): S16.1XXA - Strain of muscle, fascia and tendon at neck level, initial encounter Condition: Stable Prescriptions: New diclofenac sodium 75 mg tablet,delayed release (DR/EC) 75 mg PO BID Qty: 20 0RF cyclobenzaprine 5 mg tablet 5 mg PO .HS Qty: 14 0RF No Action Benadryl Allergy 25 mg Tablet See Rx Instructions .ROUTE .COMPLEX Rx Instructions: 25mg po qam and 50mg po bedtime prn ibuprofen 200 mg Tablet 800 mg PO PRN Discharge Orders: Discharge ED (Routine); Ordered 05/04/22 Ordered By: Fer Schwartz Referrals: Blanche Yusuf MD [Primary Care Provider] - Discharge Diet: Usual diet Discharge Activity: Increase activity as tolerated Patient Instructions: Muscle Strain (ED) Activity Restrictions/Additional Instructions: Activity as tolerated. Gentle stretching and range of motion exercises of the neck and upper back. Drink plenty of water. Take diclofenac 75 mg 1 tablet 2 times a day routinely for pain and inflammation. Take cyclobenzaprine 5 mg at bedtime for rest and muscle spasms. Do not use ibuprofen while taking diclofenac. You may use acetaminophen for further pain relief. You may use ice and heat for further pain relief. Follow-up with primary care in 1 week for recheck. Return to ED for new concerns. 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
[2022-05-04] MEDS: dexamethasone 10 mg/mL INJ IM (17:39)
[2022-05-04] MEDS: ketorolac 30 mg/mL INJ IM (17:39)
== END 2022-05-04 17:53 | disposition home or self-care (01) ==
PROVIDERS: Emergency Provider Nurse Practitioner Family; PCP Family Medicine
DX: S16.1XXA Strain of muscle, fascia and tendon at neck level, initial encounter (principal); X58.XXXA Exposure to other specified factors, initial encounter
CPT/HCPCS: 96372; 99284; J1100; J1885

== ENCOUNTER → 2023-03-20 16:54 | Outpatient (BNVA) | payer BC, MEDICAID, SELFPAY | PROVIDERS: PCP Family Medicine; Visit Provider Obstetrics & Gynecology | DX: Z12.4 Encounter for screening for malignant neoplasm of cervix (principal); Z01.419 Encounter for gynecological examination (general) (routine) without abnormal findings | CPT/HCPCS: 88175 ==

== ENCOUNTER → 2023-04-10 13:41 | Outpatient (BNVA) | payer BC, MEDICAID, SELFPAY | PROVIDERS: PCP Family Medicine; Visit Provider Family Medicine | DX: G43.101 Migraine with aura, not intractable, with status migrainosus (principal); M25.369 Other instability, unspecified knee | CPT/HCPCS: 80053; 84439; 84443; 85025 ==

== ENCOUNTER → 2023-10-07 09:36 | Outpatient (BNVA) | payer BC, MEDICAID, SELFPAY | PROVIDERS: PCP Family Medicine; Referring Provider Family Medicine; Visit Provider Physician Assistant | DX: M25.561 Pain in right knee; M25.361 Other instability, right knee | CPT/HCPCS: 73560; 73565 ==

== ENCOUNTER 2024-02-02 15:11 | Outpatient (CLI) | payer OTHER, BC, MEDICAID, SELFPAY ==
--- NOTE | 2024-02-02 15:15 | MR_ITS ---
WS: [id number] MRI RIGHT KNEE NONCONTRAST TECHNIQUE: Axial PD, coronal PD fat sat, coronal PD, sagittal PD, and sagittal PD fat-sat images obta ined. CLINICAL INFORMATION: right knee meniscal injury COMPARISON: None. FINDINGS: Distal quadriceps and patella tendons are intact. Hypertrophic patella. Grade III chondromalacia mckinney lla advanced for a patient this age. Somewhat shallow trochlear groove. Correlation for patellar inst ability. Increased signal in the lateral patella facet cartilage. Small suprapatellar effusion. Media l and lateral patellar retinaculum appear intact. The ACL and PCL appear intact. Normal lateral meniscus. Normal medial and lateral collateral ligament s. Normal popliteus. Slight peripheral extrusion of the medial meniscus. Blunting of the medial menis cus at the meniscal root suspicious for tear. MR/MR knee RT wo con* [id number] IMPRESSION: 1. ACL and PCL appear intact. 2. 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 Somewhat shallow trochlear groove. Recommend correlation for patell ar instability. 3. Medial and lateral patellar retinaculum appear intact. 4. Thinning of the medial meniscus with slight peripheral extrusion with suspe cted tear at the posterior horn meniscal root. Outbridge grading: grade III: partial-thickness cartilage loss with focal ulcer ation
== END 2024-02-02 15:12 | disposition home or self-care (01) ==
PROVIDERS: PCP Family Medicine; Visit Provider Physician Assistant
DX: M23.221 Derangement of posterior horn of medial meniscus due to old tear or injury, right knee (principal); M22.41 Chondromalacia patellae, right knee
CPT/HCPCS: 73721

== ENCOUNTER 2024-05-13 09:09 | Day surgery (SDC) | payer BC, MEDICAID, OTHER, SELFPAY ==
[2024-05-13] VITALS (12 sets, daily range): BP systolic 91–127; BP diastolic 53–85; PULSE 84–100; RESP 15–19; TEMP 36.2–36.9; O2SAT 95–100; BMI 31.1
[2024-05-13 09:54] LABS: OR HCG Qualitative Urine Negative (Negative)
--- NOTE | 2024-05-13 09:57 | P.HP_ITS ---
Same Day Surgery H&P Indication for Procedure/HPI DATE OF PROCEDURE: May 13, 2024 CHIEF COMPLAINT/INDICATIONFOR SURGICAL PROCEDURE: Right knee medial meniscus tear PREOP DIAGNOSIS: Right knee medial meniscus tear PLANNED PROCEDURE: Operation Date: 05/13/24 10:35 Proposed Procedures p Knee Arthroscopy w/ partial Medial Menisectomy vs repair(Right) - Jai Gamble, DO Medications/Allergies* Home Medications ?Medication ?Instructions ?Recorded ?Confirmed ?Type diphenhydramine HCl 25 mg tablet See Rx Instructions . Route 11/29/19 05/12/24 History (Benadryl Allergy) .COMPLEX PRN Allergy Symptom s Allergies/Adverse Reactions Allergy/AdvReac Type Severity Reaction Status Date / Time No Known Allergies Allergy Verified 04/26/24 15:11 Pertinent History/Comorbid Conditions* Medical History (Updated 01/13/24 @ 11:38 by EDUARDO Cash) Migraine headache with aura Surgical History (Updated 11/02/19 @ 11:43 by Floresita Hines APN, VINCE) S/P tubal ligation (09/22/19) laparoscopic bilateral tubal fulguration with salpingectomy performed by Dr. Keith at [facility] Family History (Updated 04/10/23 @ 13:06 by Jennifer Alonso LPN) Aneurysm Hyperlipidemia Hypertension Father Denies family history of Liver disease Diabetes CAD (coronary artery disease) Autoimmune disease Clotting disorder Dementia Psychiatric illness Chronic kidney disease (CKD) Anesthesia complication Bleeding disorder Lung disease Cancer Thyroid disease Stroke Social History Smoking and tobacco/nicotine status: never used tobacco/nicotine Alcohol intake: never Substance/Drug Use: never Lives independently: Yes Marital status: Life Partner Number of children: 3 Current occupational status: employed Current occupation: [employer] needs: No Pertinent Exam Findings alert, oriented x 3, operative site marked and procedure specific exam findings Please refer to detailed orthopedic examination on 03/25/2024 listed below: right Knee exam -negative joint effusion -Patient has hypermobile patella but it does not cause her any pain and no patella tenderness. -Negative patellar apprehension -ROM 0-130 degrees -Medial joint line tenderness -Negative Chaitanya's -Negative valgus, negative varus stress -Positive Sidra's test -Patient can perform straight leg raise can dorsiflex plantarflex foot. Recommendations Surgery/Procedure today Other Plans: Plan to proceed to the OR today for a right knee diagnostic and surgical diascopy partial medial meniscectomy versus repair. Patient understands the ins and outs procedure risk benefits complication alternatives with surgery and through shared decision make elects proceed with surgical invention. All questions answered at this time. Her continued pain continues to be on the medial aspect with a positive Sidra's again we had addressed that she does have some hypermobility of her patella this is on both sides but she does not have any issues pertaining to this and no signs of apprehension at this point in time her main issue is her medial joint line over the meniscus and we will address the medial meniscus tear evident on her MRI. Patient understands and agrees with current plan. Questions answered. Will proceed with surgery today. Coding Level of Care Code Acute Code for Berenice Ferris
--- NOTE | 2024-05-13 09:58 | ANES.PREANE2 ---
Pre-Anesthetic Assessment Height/Weight: Height 1.57 m Weight 77.111 kg Preop Diagnosis: Right knee medial meniscus tear Operation Date: 05/13/24 10:35 Proposed Procedures p Knee Arthroscopy w/ partial Medial Menisectomy vs repair(Right) - Jai Gamble DO Familial anesthetic complications: None Was Beta Cynthia taken within 24 hours: N/A Was Clonidine taken within 24 hours: N/A Last intake: Intake Last Liquid Date 05/12/24 Last Liquid Time 21:00 Last Solid Date 05/12/24 Last Solid Time 19:00 Social No alcohol and No tobacco Exam alert, oriented x 3, clear to auscultation bilaterally and regular rate & rhythm Airway Mallampati: Class I Dentition: other (missing) Anesthetic Plan ASA status: 1 Anesthesia: General Risk of > 500 ml blood loss (7ml/kg in children): No Medications/Allergies Home Medications ?Medication ?Instructions ?Recorded ?Confirmed ?Last Taken ?Type diphenhydramine HCl 25 mg tablet See Rx Instructions .Route 11/29/19 05/12/24 Unknown History (Benadryl Allergy) .COMPLEX PRN Allergy Symptoms amitriptyline 50 mg tablet 50 mg PO DAILY #90 tabs 01/12/24 05/12/24 05/11/24 Rx diclofenac sodium 1 % topical gel 4 g topical QID #100 grams 01/12/24 05/13/24 05/06/24 Rx (Voltaren Arthritis Pain) sumatriptan succinate 25 mg tablet See Rx Instructions PO .COMPLEX #9 01/12/24 05/13/24 04/29/24 Rx tabs Allergies Allergy/AdvReac Type Severity Reaction Status Date / Time No Known Allergies Allergy Verified 04/26/24 15:11 [facility] Anesthesia Medical History Migraine headache with aura Surgical History S/P tubal ligation (09/22/19) laparoscopic bilateral tubal fulguration with salpingectomy performed by Dr. Keith at [facility] Family History Father Hypertension Other Aneurysm Hyperlipidemia Denies family history of Liver disease Diabetes CAD (coronary artery disease) Autoimmune disease Clotting disorder Dementia Psychiatric illness Chronic kidney disease (CKD) Anesthesia complication Bleeding disorder Lung disease Cancer Thyroid disease Stroke Social History Smoking and tobacco/nicotine status: never used tobacco/nicotine Alcohol intake: never Substance/Drug Use: never Lives independently: Yes Marital status: Life Partner Number of children: 3 Current occupational status: employed Current occupation: [employer] Special vandana needs: No Data Anesthesia Cardiac Studies: No Data to Display
[2024-05-13] MEDS: sodium chloride 0.9% 1,000 ML 30 ML IV (10:11)
[2024-05-13] MEDS: ketorolac 30 mg/mL INJ IVP (10:12)
[2024-05-13] MEDS: scopolamine 1 mg PATCH 1 PATCH TRANSDERMA (10:12)
[2024-05-13] MEDS: acetaminophen 1,000 MG/100 ML PIGGYBACK 400 MG IV (10:12)
[2024-05-13] MEDS: ceFAZolin 2,000 MG in sodium chloride 0.9% (plus) 50 ML 100 MG IV (10:25)
[2024-05-13] MEDS: lidocaine-epi 1% 20 mL INJ 40 ML INJECTION (11:13)
--- NOTE | 2024-05-13 11:13 | W.PM.BPON ---
Date of Procedure: 05/13/2024 Surgeon: Jai Gamble DO Metal Bench Patternmaker(s): Mickey Gamble PA-C Procedure(s) performed: Right knee diagnostic and surgical arthroscopy with patella chondroplasty Right knee diagnostic and surgical arthroscopy with extensive synovectomy of medial lateral patellofemoral compartment Findings of the procedure(s): Patient was found to have extensive synovitis in all 3 compartments most pronounced in the patellofemoral space as well as patella chondromalacia underwent chondroplasty. Inspection of the medial meniscus was found to be pristine there was no evidence of tear the root was intact there was no peripheral tear on the pericapsular attachment this was checked by looking in the retrograde street space as well. Patient tolerated procedure well without issues or complications taken back to PACU in stable condition Estimated blood loss: 2 mL Specimen(s) removed: None Post-operative diagnosis: Right knee extensive synovitis, patella chondromalacia
--- NOTE | 2024-05-13 11:15 | P.OP_ITS ---
Operative Report Date of procedure: May 13, 2024 Surgeon: Jai Gamble DO Brand Manager: Mickey Gamble PA-C: PA was necessary for assistance in this case with leg/knee positioning to execute the procedure, assistance with instrumentation, assist with wound closure and dressing application. Procedure: Preoperative diagnosis: Right knee medial meniscus tear Post-op diagnosis: Right knee extensive synovitis, patella chondromalacia Procedure done: Right knee diagnostic and surgical arthroscopy with patella chondroplasty Right knee diagnostic and surgical arthroscopy with extensive synovectomy of medial lateral patellofemoral compartment Surgeon: Jai Gamble DO Estimated blood loss: 2mL Tourniquet: No tourniquet was used IV fluids: See anesthesia record Complications: None Findings: See operative report narrative Condition: stable Disposition: same day Brief History: Patient is a 33-year-old female with right?knee?pain.? Patient has failed conservative treatment who has been worked up for right??knee?pain in the outpatient setting. MRI findings consistent with tear of the medial meniscus. talked in the office about treatment options patient would like to proceed with a right?knee?diagnostic and surgical arthroscopy with partial medial meniscectomy vs repair.? Patient understand the ins and outs of the procedure the risk benefits complication alternatives to treatment options.? Understanding risk of surgery they agree to proceed with surgical intervention.? Understanding this and patient agree to proceed with surgical intervention all questions answered. Procedure: Patient seen and evaluated in the preoperative holding area.? Consent was reviewed and signed with patient.? Correct extremity was then marked.? Patient seen evaluated Anesthesia Department once cleared for surgery patient was taken back to the operative suite.? Patient was transported onto the OR table in supine position.? All bony prominences well-padded patient was appropriate secured to the bed.? Once appropriately anesthetized a nonsterile tourniquet was applied to the right thigh.? The right lower extremity was then prepped and draped in standard orthopedic fashion.? Final timeout performed.? Patient received appropriate preoperative antibiotics. Patient received local anesthetic of lidocaine with epinephrine into the joint as well as around the portal sites.? No tourniquet was inflated A standard 2 portal vertical incision diagnostic and surgical arthroscopy of the right?knee?was performed in standard fashion.? Small stab incision made in the inferolateral portal introduced trocar and arthroscope into the suprapatellar pouch.? Suprapatellar pouch was subsequently visualized and found to have sig nificant synovitis but no loose bodies.? Patient had noticeable significant inflamed infrapatellar fat pad and thickening hypertrophic within the patellofemoral compartment.? ?The medial gutter was free of loose bodies I then introduced the arthroscope into the medial compartment.? Within the medial compartment I then established my inferior medial working portal utilizing spinal needle outside in technique.? Once established I then visualized our articular cartilage of the medial compartment with a valgus stress.? Patient was found to have grade 1 chondromalacia throughout the medial compartment.? Next I inspected the meniscus.? With an arthroscopic probe was utilized to visual? all aspects of the meniscus.? Meniscal root was found to be intact.? Throughout the posterior horn body and anterior horn there is no evidence of meniscal tear this was probed and inspected thoroughly and there was no evidence of meniscal tear the meniscus was stable and no evidence of meniscal instability. As result the meniscus was left alone and this completed the work in the medial compartment besides the synovectomy performed. Next a introduced the arthroscope to the intercondylar notch.? PCL and ACL were intact. patient had significant thickening of the infrapatellar fat pad spanning into the medial and lateral compartments.? I then performed an extensive synovectomy with the arthroscopic shaver of the patellofemoral medial and lateral compartments as well as the intercondylar notch. Advance the?scope?into the retrocruciate space and no loose bodies were found, As well as there is no visible tears on the medial or lateral aspects of the posterior meniscus with no evidence of meniscocapsular separation. Next I introduced the arthroscope into the lateral compartment the lateral co mpartment was found to have grade 1 chondromalacia.? Lateral meniscus was found to be intact.? The root was intact.? Given the grade I chondromalacia there is no unstable cartilage pieces to perform chondroplasty.? This completed my work of the lateral compartment and then performed a synovectomy of the lateral compartment.? Next of the arthroscope was placed into the lateral gutter and this was free of loose bodies.? Finally I reintroduced the arthroscope into the patellofemoral compartment.? The patellofemoral was found to have grade 2 chondromalacia of the patellofemoral compartment.?I did utilize an arthroscopic shaver and thermal wand on the undersurface of the patella to perform a patella chondroplasty stable articular tissue. At this point I utilized arthroscopic shaver as well as thermal wand to perform extensive synovectomy of the patellofemoral compartment. This completed my work of the patellofemoral space.? I then switch my portal sites to the medial working portal.? Completed the rest of my synovectomy and the rest of my examination arthroscopy was normal. All fluid was suctioned from the joint.? ?All instruments were withdrawn.? Portal sites were closed with interrupted nylon suture.? portal sites were then covered with with Xeroform 4 x 4's ABD Curlex and Jonny wrap.? Patient was then subsequently awakened from anesthesia and taken to PACU in stable condition. Disposition: Patient taken to PACU in stable condition recovering well.? Will receive appropriate discharge structure as well as pain medication postoperatively as well as? DVT prophylaxis.we will have patient follow-up with us in the office in 2 weeks.? We will weightbearing as tolerated to the right lower extremity.? Patient understands and agrees with current plan.? All questions answered.
--- NOTE | 2024-05-13 11:53 | PM.PACU ---
PACU note Narrative: Patient is a 33-year-old female just underwent a right knee arthroscopy. Pt transferred to PACU in stable condition. Dressing is dry. pt is awake and alert. pt can wiggle toes and plantarflex and dorsiflex foot. pt able to perform straight leg raise, Femoral nerve intact. Distal pulses are palpable toes are warm and well-perfused. Cap refill is normal and under 2 seconds. Sensation to foot is intact. Pain is controlled. Exam: awake Disposition: discharged
--- NOTE | 2024-05-13 14:33 | ANE.PACU2 ---
Inpatient post-anesthesia follow up: Airway intact: Yes Vital signs: Temperature 97.9 F Pulse Rate 89 Respiratory Rate 16 Blood Pressure 117/74 Pulse Oximetry 99 Oxygen Delivery Me thod Room Air Oxygen Flow Rate 6 Fraction of Inspir ed Oxygen Hydration adequate: Yes Nausea and vomiting: Yes Pain level: 1 Mental status: Baseline
== END 2024-05-13 13:30 | disposition home or self-care (01) ==
PROVIDERS: Anesthesiology; PCP Family Medicine; Visit Provider Student in an Organized Health Care Education/Training Program
PROC: (CPT 29870; principal; 2024-05-13 10:35)
PROC: (CPT 29876; 2024-05-13 10:35)
PROC: (CPT 29876; 2024-05-13 10:35)
DX: M65.861 Other synovitis and tenosynovitis, right lower leg (principal); M94.261 Chondromalacia, right knee
CPT/HCPCS: 29876; 81025; J0131; J0690; J1100; J1885; J2250; J2405; J2704; J3010; J7030